=== PATIENT | female | born 1980 | race Two or more races ===

== ENCOUNTER 2025-01-19 19:11 | Emergency (ER) | payer OTHER ==
[~2025-01-19] VITALS: Ht 165.1 cm; Wt 70.8 kg
[2025-01-19] MEDS ORDERED: MINIVELLE1 EAC1 (19:50)
[2025-01-19] MEDS ORDERED: PROMETRIUM200 MG (19:51)
[2025-01-19 22:01] LABS: BASO % 0.4 % (0.1-1.2); EOS # 0.05 (0.04-0.54); EOS % 0.7 % (0.7-7.0); LYMPH # 2.20 (1.18-3.74); LYMPH % 28.6 % (19.3-53.1); MEAN PLATELET VOLUME 10.10 fl (9.4-12.4); MONO # 0.43 (0.24-0.82); MONO % 5.6 % (4.7-12.5); NEUT # 4.95 (1.56-6.13); NEUT % 64.4 % (34.0-71.1); RED CELL DISTRIBUTION WIDTH 13.4 % (11.6-14.4)
[2025-01-19 22:19] LABS: ALT/SGPT 25.0 U/L (12-78); AST/SGOT 17.0 U/L (15-37); BILIRUBIN TOTAL 0.41 mg/dL (0.3-1.2); BUN CREA RATIO 17.0 (7.0-25.0); CREATININE SERUM 0.87 mg/dL (0.55-1.02); GFR 71.06; GLOBULINA 3.7 G/DL (2.4-3.5); GLUCOSE FASTING 124.0 mg/dL (65-100); OSMOLALITY SERUM 283.0 MOSM/KG (275-295)
== END 2025-01-20 01:15 | disposition home or self-care (01) ==
LOC: ER 19:12
PROVIDERS: Preventive Medicine Public Health & General Preventive Medicine
DX: E16.2 Hypoglycemia, unspecified (principal); R42 Dizziness and giddiness